=== PATIENT | male | born 1960 | race Two or more races ===

== ENCOUNTER 2025-05-04 13:25 | Emergency (ER) | payer MEDICAID, SELFPAY ==
[2025-05-04 13:38] VITALS: PULSE 116; O2SAT 98; BMI 26.6
[2025-05-04 14:02] VITALS: BP 143/82; PULSE 117; RESP 18; TEMP 36.7; O2SAT 97
--- NOTE | 2025-05-04 15:17 | PD.EDWEAK ---
ED Weakness CHRISTOPHE/SABRINA General Chief complaint: Weakness Time Seen by Provider: 05/04/25 15:15 Source: patient Arrival date/time: 05/04/25 13:25 Mode of arrival: ambulatory Limitations: no limitations RME / SABRINA EDWARDS Complaint: generalized weakness and difficulty walking Onset (ago): day(s) (7 DAYS) Duration: intermittent Location: generalized Migration: none Severity: moderate Related Data Allergies Allergy/AdvReac Type Severity Reaction Status Date / Time No Known Allergies Allergy Verified 05/04/25 13:40 Review of Systems Constitutional Constitutional: Reports system reviewed and no additional complaints, except as documented Eyes Eyes: Reports system reviewed and no additional complaints, except as documented, Denies dry eyes, Denies exophthalmos and Reports floaters Cardiovascular Cardiovascular: Denies chest pain with activity and Denies claudication ED Exam Narrative Physical exam: CBC, CMP General Limitations: Present no limitations General appearance: Present alert and in no apparent distress Head Head exam: Present atraumatic Eye Eye exam: Present normal appearance and EOMI ENT ENT exam: Present normal exam, normal oropharynx and mucous membranes moist Neck Neck exam: Present normal inspection, full ROM and trachea midline Chest Chest inspection: Present normal inspection and symmetric chest wall rise Respiratory Respiratory exam: Present normal lung sounds bilaterally Cardiovascular Cardiovascular exam: Present regular rate, normal rhythm and normal heart sounds Abdominal Exam Abdominal exam: Present soft and normal bowel sounds Extremities Exam Extremities exam: Present normal inspection and full ROM Back Exam Back exam: Present normal inspection and full ROM Neurological Exam Neurological exam: Present alert, oriented X3 and CN II-XII intact Psychiatric Psychiatric exam: Present normal affect and normal mood Skin Skin exam: Present warm, dry, intact and normal color Course Course Course Narrative: CMP, CBC Quality Measures none (NA) Orders NA Vital Signs Vital signs: Vital Signs Temperature 98.0 F 05/04/25 14:02 Pulse Rate 117 H 05/04/25 14:02 Respiratory Rate 18 05/04/25 14:02 Blood Pressure 143/82 H 05/04/25 14:02 Pulse Oximetry (%) 97 05/04/25 14:02 Oxygen Delivery Method Room Air 05/04/25 14:02 Pulse ox room air is 97% Weakness Patient data External records reviewed:: Other (specify) Clinical information provided by:: none Social determinants that could affect healthcare access:: none (NA) Patient has the following chronic illnesses:: NA Evaluation data The following diagnostics were reviewed and interpreted by me:: other (specify) (NA) Lab and/or radiology exams considered but not ordered:: NA Medications / Prescriptions Medications or Prescriptions considered but not ordered:: NA Medication administrations:: NA Consultations Consultation(s) initiated? (list below): No Diagnosis Weakness Differential Diagnosis: hypoglycemia, hypothyroidism and other Admission Indicated Admission indicated?: not indicated Admission Request Was there a request for admission?: No Disposition Plan Disposition Plan: Discharge Discharge Attestation Discharge Attestation: The patient and all family members were given an opportunity to ask questions and understood the discharge instructions. Discharge instructions specifically effects, indications for sooner follow up or return to the emergency department, and the expected course of current diagnosis. Patient condition: Stable Discharge Plan Patient/Caregiver Discharge Instructions Print Language: Romansh
--- NOTE | 2025-05-04 16:30 | PC.NURSE ---
FAMILY CAME TO TRIAGE DESK, YELLING AT TRIAGE NURSE THE HE'S BEEN HERE FOR HOURS AND HAS NOT BEEN SEEN! INFORMED FAMILY THAT PT HAS BEEN SEEN BY A PROVIDER AND NOW ARE WAITING FOR TESTS TO BE DONE. MALE VISITOR SAID I WANT TO TALK WITH A CHARGE NURSE. INFORMED THAT TRIAGE NURSE WILL LET CHARGE NURSE KNOW HE WANTS TO TALK WITH HER. CALLED CHARGE NURSE AND INFORMED HER FAMILY WISH TO TALK WITH HER.
[2025-05-04 17:19] LABS: Basophils # (Auto) 0.1 Thou/mm3 (0.0-0.2); Basophils % (Auto) 1 % (0-2.5); Eosinophils # (Auto) 0.0 Thou/mm3 (0.0-0.5); Eosinophils % (Auto) 0 % (0-10); Hematocrit 37.2 % (41.0-53.0); Hemoglobin 11.2 g/dL (13.5-16.0); Immature Granulocytes Auto 0.03 Thou/mm3 (0.00-0.00); Lymphocytes # (Auto) 0.6 Thou/mm3 (1.0-4.8); Lymphocytes % (Auto) 5 % (10-50); Mean Corpuscular HGB Conc 30.1 g/dl (31.0-37.0); Mean Corpuscular Hemoglobin 23.5 pg (25.0-35.0); Mean Corpuscular Volume 78 fL (80-100); Monocytes # (Auto) 0.9 Thou/mm3 (0.0-0.8); Monocytes % (Auto) 8 % (0-12); Neutrophils # (Auto) 9.2 Thou/mm3 (1.8-7.7); Neutrophils % (Auto) 86 % (37-80); Nucleated Red Blood Cell # 0.00 Thou/mm3 (0.00-0.00); Nucleated Red Blood Cell % 0 /100 WBC (0); Platelet Count 240 Thou/mm3 (140-440); RDW Standard Deviation 56.8 fL (35.1-43.9); Red Blood Count 4.76 Miln/mm3 (4.50-5.90); White Blood Count 10.7 Thou/mm3 (3.8-10.6)
[2025-05-04 17:41] LABS: Alanine Aminotransferase 32 U/L (10-49); Albumin, Serum 4.5 gm/dL (3.4-4.8); Albumin/Globulin Ratio 1.2 (1.2-2.2); Alcohol, Blood Medical < 3.0 mg/dL (0-10.0); Alkaline Phosphatase 109 U/L (46-116); Anion Gap 15 (7-16); Aspartate Amino Transferase 55 U/L (0-34); BUN/Creatinine Ratio 8 Ratio (12-20); Bilirubin,Total 1.2 mg/dL (0.3-1.2); Blood Urea Nitrogen 7 mg/dL (9-23); Calcium 9.3 mg/dL (8.3-10.6); Calcium (Corrected) 9.3 mg/dL (8.5-10.1); Carbon Dioxide 22.4 mMol/L (20.0-31.0); Chloride 102 mMol/L (98-107); Creatinine (Component) 0.9 mg/dL (0.6-1.3); Estimated Creatinine Clearance 81.3 mL/min (>60); Globulin 3.7 gm/dL (2.3-3.5); Glucose 154 mg/dL (74-106); Magnesium 2.0 mg/dL (1.6-2.6); Osmolality,Calculated 278 (275-295); Phosphorous 2.9 mg/dL (2.4-5.1); Potassium 3.4 mMol/L (3.4-5.1); Sodium 139 mMol/L (136-145); Total Protein 8.2 gm/dL (5.7-8.2); eGFR > 60 See Note
[2025-05-04 17:56] LABS: Collection Type, Urine Clean Catch
[2025-05-04 18:11] LABS: Amphetamine/Methamp Scrn,U Negative (Negative); Barbiturate Screen,Urine Negative (Negative); Benzodiazepines Screen,Urine Negative (Negative); Benzoylecgonine Screen, Ur Negative (Negative); Fentanyl Screen,Urine Negative (Negative); Opiate Screen,Urine Negative (Negative); THC Screen,Urine Positive (Negative)
[2025-05-04 18:23] LABS: Bilirubin,Urine Negative (Negative); Blood,Urine Negative (Negative); Clarity,Urine Turbid (Clear/Hazy); Color,Urine Yellow (Lt Yel-Yel); Glucose, Urine Trace (Negative); Ketones,Urine Trace (Negative); Leukocyte Esterase,Urine Positive (Negative); Nitrite,Urine Negative (Negative); PH,Urine 6.0 (5.0-7.0); Protein,Urine 1+ (Neg - Trace); RBC,Urine 9 /hpf (0-3); Specific Gravity,Urine 1.032 (1.001-1.035); Squamous Epithelial Cell,Urine < 1 /hpf (0-5); Urobilinogen,Urine 6.0 mg/dL (0.0-1.0); WBC,Urine 65 /hpf (0-5)
--- NOTE | 2025-05-04 20:13 | PD.EDWEAK ---
ED Weakness RME/HPI General Chief complaint: Weakness Stated complaint: SHAKING Time Seen by Provider: 05/04/25 15:15 Source: patient Arrival date/time: 05/04/25 13:25 Mode of arrival: ambulatory RME / HPI RME / HPI Narrative: This section includes all my notes and documentations, including HPI, PE, and ED course. Servando Walsh MD HPI: 65yo male [facility] presents to the ED for a chief complaint of shakiness. Patient states he drinks alcohol heavily every day. His last drink was this morning and he has since had shakiness. No fever, chills, N/V, hallucinations or any other associated symptoms. No other complaints reported. ROS: All negative except as documented in HPI. Physical Exam: General: Alert and oriented. No acute distress when remaining still. Eyes: Conjunctivae and lids clear. ENT: No nasal congestion. Neck: Supple. Heart: RRR. Lungs: No respiratory distress. Good air movement. No rhonchi, wheezing, rales. Abdomen: Soft and nontender. Normal bowel sounds. No distension. No rebound or guarding. Back: No CVA tenderness. Skin: Warm and dry. Neuro: Alert and oriented X 3. I reviewed EMS notes. I reviewed all diagnostic test results. Blood tests remarkable for K 3.4 and negative alcohol level. Urine tests remarkable for positive leukocyte esterase, 9 RBCs, and 65 WBCs. At this point, diagnoses include alcohol use and UTI. Treatment here included Ativan, Zofran, Kayexalate, and Macrobid. Recommended outpatient management. Based on my best medical judgment, made decision no further evaluation or treatment indicated at this time. Patient understands and agrees to the discharge instructions customized and printed, see below. Discharge Instructions from Dr. Walsh printed for you: 1. For urine infection, take Macrobid as prescribed to kill the germs causing the infection. For good hydration, increase oral fluid and maintain clear urine. If dark or yellow, increase oral fluid. Zofran for nausea/vomiting. 2. Suddenly quitting alcohol can be fatal. So take Ativan as prescribed. 3. Eat regular nutritious meals. 4. Take multivitamin and folic acid 1 mg and thiamine 50 mg daily. And eat a banana daily for potassium. 5. See a private doctor on 05/05/2025 for recheck and further care. Ask to review all test results and official radiology reports, to make sure you receive all necessary follow-ups and monitoring. Ask for help to quit alcohol without alcohol withdrawal. 6. Seek immediate medical care with worsening or with any concerns. Servando Walsh MD MD Complaint: generalized weakness and difficulty walking Location: generalized Severity: moderate Related Data Previous Rx's ?Medication ?Instructions ?Recorded lorazepam 2 mg tablet (Ativan) 2 mg PO Q8H #9 tabs 05/04/25 nitrofurantoin 100 mg PO BID #14 caps 05/04/25 monohydrate/macrocrystals 100 mg capsule (Macrobid) ondansetron 4 mg disintegrating 4 mg PO TID PRN nausea and 05/04/25 tablet vomiting 30 days #10 tabs Allergies Allergy/AdvReac Type Severity Reaction Status Date / Time No Known Allergies Allergy Verified 05/04/25 13:40 Review of Systems Review of Systems Systems Reviewed: All systems reviewed, normal except as documented Past Medical History Social History SMOKING STATUS: Never smoker ED Exam Narrative Physical exam: As noted in HPI. Course Quality Measures none Orders Category Date Time Status CBC Stat Lab 05/04/25 16:54 Completed CMP [Comprehensive Metabolic Panel] Stat Lab 05/04/25 16:54 Completed Drug Screen,Urine Stat Lab 05/04/25 17:30 Completed YAA [Alcohol, Blood Medical] Stat Lab 05/04/25 16:54 Completed Mag [Magnesium] Stat Lab 05/04/25 16:54 Completed Phosphorous Stat Lab 05/04/25 16:54 Completed Urinalysis Stat Lab 05/04/25 17:30 Completed Urine Culture Stat Lab 05/04/25 17:30 Received Folic Acid Med 05/07/25 09:00 Discontinued 1 mg PO QDAY Folic Acid Inj Med 05/05/25 09:00 Discontinued 1 mg IVP QDAY LORazepam [Ativan Inj] Med 05/04/25 16:44 Discontinued 1 mg IVP X1 ONE LORazepam [Ativan] Med 05/04/25 20:16 Discontinued 2 mg PO X1 ONE Nitrofurantoin Macro [Macrobid] Med 05/04/25 20:16 Discontinued 100 mg PO X1 ONE Ondansetron Odt [Zofran Odt] Med 05/04/25 20:16 Discontinued 4 mg PO X1 ONE Sod Polystyrene Sulfon Susp [Kayexalate Susp] Med 05/04/25 20:16 Discontinued 30 gm PO X1 ONE Sodium Chloride 0.9% 1000 ml [Ns] 1,000 ml Med 05/04/25 16:44 Discontinued IV 999 mls/hr Thiamine Inj [Vitamin B-1 Inj] Med 05/05/25 09:00 Discontinued 100 mg IVP QDAY Thiamine [Vitamin B-1] Med 05/07/25 09:00 Discontinued 100 mg PO QDAY Vital Signs Vital signs: Vital Signs Temperature 98.0 F 05/04/25 14:02 Pulse Rate 117 H 05/04/25 14:02 Respiratory Rate 18 05/04/25 14:02 Blood Pressure 143/82 H 05/04/25 14:02 Pulse Oximetry (%) 97 05/04/25 14:02 Oxygen Delivery Method Room Air 05/04/25 14:02 Weakness MDM Narrative MDM Narrative:: 65yo male [facility] presents to the ED for a chief complaint of shakiness. Patient states he drinks alcohol heavily every day. His last drink was this morning and he has since had shakiness. No fever, chills, N/V, hallucinations or any other associated symptoms. No other complaints reported. Patient data External records reviewed:: [facility] previous records (Per chart review, patient has no previous ED visits or admissions to this facility.) Clinical information provided by:: patient Social determinants that could affect healthcare access:: alcohol use Patient has the following chronic illnesses:: none How is presenting disease/condition affected by chronic disease/condition?: no chronic disease Evaluation data The following diagnostics were reviewed and interpreted by me:: lab results Lab and/or radiology exams considered but not ordered:: none Interpretation Summary: I reviewed all diagnostic test results. Blood tests remarkable for K 3.4 and negative alcohol level. Urine tests remarkable for positive leukocyte esterase, 9 RBCs, and 65 WBCs. Medications / Prescriptions Medications or Prescriptions considered but not ordered:: none Medication administrations:: Medication Administration History Discontinued Medications Folic Acid (Folic Acid 1 Mg Tablet) 1 mg PO QDAY BELKYS Stop: 06/06/25 08:59 Folic Acid (Folic Acid Inj 1 Mg/0.2 Ml) 1 mg IVP QDAY BELKYS Stop: 05/07/25 08:59 Sodium Chloride (Ns) 1,000 mls @ 999 mls/hr IV .Q1H1M ONE Stop: 05/04/25 17:44 Lorazepam (Lorazepam 2 Mg/Ml Vial) 1 mg IVP X1 ONE Stop: 05/04/25 16:45 Lorazepam (Lorazepam 0.5 Mg Tablet) 2 mg PO X1 ONE Stop: 05/04/25 20:17 Nitrofurantoin Macrocrystals (Nitrofurantoin Macro 100 Mg Capsule) 100 mg PO X1 ONE Stop: 05/04/25 20:17 Ondansetron HCl (Ondansetron Odt 4 Mg Tabrap) 4 mg PO X1 ONE; Protocol Stop: 05/04/25 20:17 Sodium Polystyrene Sulfonate (Sod Polystyrene Sulfon Susp 15 Gm/60 Ml Btl) 30 gm PO X1 ONE Stop: 05/04/25 20:17 Thiamine HCl (Thiamine Inj 100 Mg/Ml Vial 2 Ml) 100 mg IVP QDAY BELKYS Stop: 05/07/25 08:59 Thiamine HCl (Thiamine 100 Mg Tablet) 100 mg PO QDAY BELKYS Stop: 06/06/25 08:59 Ativan, Zofran, Macrobid Consultations Consultation(s) initiated? (list below): No Diagnosis Weakness Differential Diagnosis: anemia, hypoglycemia, dehydration and other ([place] intoxication, alcohol withdrawal, UTI) Most likely diagnosis given after review of the tests above:: Alcohol use, UTI Admission Indicated Admission indicated?: not indicated Explain why admission is indicated or not indicated:: With significant improvement and no condition needing emergent intervention, there was no indication for admission. Admission Request Was there a request for admission?: No Disposition Plan Disposition Plan: Discharge Discharge Attestation Discharge Attestation: The patient and all family members were given an opportunity to ask questions and understood the discharge instructions. Discharge instructions specifically effects, indications for sooner follow up or return to the emergency department, and the expected course of current diagnosis. Patient condition: Stable Discharge Plan Plan Patient Disposition: HOME (Self Care) Prescriptions/Referrals Prescriptions/Med Rec: New lorazepam [Ativan] 2 mg tablet 2 mg PO Q8H Qty: 9 0RF ondansetron 4 mg tablet,disintegrating 4 mg PO TID PRN (Reason: nausea and vomiting) 30 Days Qty: 10 0RF nitrofurantoin monohyd/m-cryst [Macrobid] 100 mg capsule 100 mg PO BID Qty: 14 0RF Rx Instructions: must administer with a meal/food Problem List Clinical Impression: Alcohol use, UTI (urinary tract infection) Patient/Caregiver Discharge Instructions Discharge Activity: activity as tolerated Education Materials: ED Alcohol Withdrawal, ED Bladder Infection, Male (Adult), ED Alcohol Abuse Additional Instructions: Discharge Instructions from Dr. Walsh printed for you: 1. For urine infection, take Macrobid as prescribed to kill the germs causing the infection. For good hydration, increase oral fluid and maintain clear urine. If dark or yellow, increase oral fluid. Zofran for nausea/vomiting. 2. Suddenly quitting alcohol can be fatal. So take Ativan as prescribed. 3. Eat regular nutritious meals. 4. Take multivitamin and folic acid 1 mg and thiamine 50 mg daily. And eat a banana daily for potassium. 5. See a private doctor on 05/05/2025 for recheck and further care. Ask to review all test results and official radiology reports, to make sure you receive all necessary follow-ups and monitoring. Ask for help to quit alcohol without alcohol withdrawal. 6. Seek immediate medical care with worsening or with any concerns. Print Language: [place] Stand Alone Forms: Tanya Award Info., Patient Portal Info Letter
[2025-05-04] MEDS: ONDANSETRON ODT 4 MG TABRAP PO (20:36)
[2025-05-04] MEDS: NITROFURANTOIN MACRO 100 MG CAPSULE PO (20:36)
== END 2025-05-04 20:42 | disposition home or self-care (01) ==
PROVIDERS: Physician Assistant; Emergency Provider Emergency Medicine
DX: N39.0 Urinary tract infection, site not specified (principal); F10.90 Alcohol use, unspecified, uncomplicated; R25.1 Tremor, unspecified
CPT/HCPCS: 36415; 80053; 80307; 80320; 81001; 83735; 84100; 85025; 87086; 99283; Q0162; A9270; G0480